=== PATIENT | male | born 1985 | race Caucasian/White ===

== ENCOUNTER 2018-03-20 12:39 | Emergency (ER) | payer OTHER ==
[2018-03-20 12:49] VITALS: BP 140/80; PULSE 82; RESP 20; TEMP 98.2; O2SAT 100
[2018-03-20 13:00] VITALS: O2SAT 99
[2018-03-20] MEDS ORDERED: SODIUM CHLORIDE 0.9% FLUSH 10 ML FLUSH IVF PRN (13:15)
[2018-03-20] MEDS ORDERED: ASPIRIN 81 MG CHEW TAB PO ONE (13:15)
[2018-03-20 13:22] LABS: AUTOMATED NEUTROPHIL # 5.9 TH/MM3 (1.8-7.7); BASOPHIL % 0.5 % (0.0-2.0); EOSINOPHIL % 0.4 % (0.0-4.0); HEMATOCRIT 48.6 % (39.0-51.0); LYMPH % 18.1 % (9.0-44.0); LYMPHOCYTE # 1.4 TH/MM3 (1.0-4.8); MEAN CELL VOLUME 89.9 FL (80.0-100.0); MEAN CORPUSCULAR HEMOGLOBIN 29.5 PG (27.0-34.0); MEAN CORPUSCULAR HGB CONC 32.9 % (32.0-36.0); MEAN PLATELET VOLUME 7.7 FL (7.0-11.0); MONO % 5.4 % (0.0-8.0); MONOCYTE # 0.4 TH/MM3 (0-0.9); NEUT % 75.6 % (16.0-70.0); PLATELET COUNT 237 TH/MM3 (150-450); RED CELL DISTRIBUTION WIDTH 12.4 % (11.6-17.2); WHITE BLOOD COUNT 7.8 TH/MM3 (4.0-11.0)
--- NOTE | 2018-03-20 13:31 | RADRPT ---
EXAM DATE/TIME: 03/20/2018 13:16 [facility] COMPARISON: No previous studies available for comparison. INDICATIONS : Chest pain for 30 minutes. Patient stated [place] past [place] days. MEDICAL HISTORY : None. SURGICAL HISTORY : None. ENCOUNTER: Initial ACUITY: 1 day PAIN SCORE: 5/10 LOCATION: Bilateral chest FINDINGS: PA and lateral views of the chest demonstrate the lungs to be symmetrically aerated without evidence of mass, infiltrate or effusion. The cardiomediastinal contours are unremarkable. Osseous structure s are intact. CONCLUSION: Normal examination. Jamel Woo MD on March 20, 2018 at 13:29 Board Certified Radiologist. This report was verified electronically.
[2018-03-20 13:32] LABS: CHLORIDE 102 MEQ/L (98-107); SODIUM (NA) 136 MEQ/L (136-145)
[2018-03-20 13:35] LABS: BICARBONATE 25.7 MEQ/L (21.0-32.0); BLOOD UREA NITROGEN 12 MG/DL (7-18); CALCIUM 9.5 MG/DL (8.5-10.1); GLUCOSE,RANDOM 134 MG/DL (74-106); MAGNESIUM 2.2 MG/DL (1.5-2.5)
[2018-03-20 13:39] LABS: GLOMERULAR FILTRATION RATE 69 ML/MIN (>89)
[2018-03-20 13:43] LABS: TROPONIN I LESS THAN 0.02 NG/ML (0.02-0.05)
--- NOTE | 2018-03-20 13:43 | PD ---
HPI . Epigastric pain Chief Complaint: Chest Pain Time Seen by Provider: 13:11 Travel History International Travel<30 days: No Contact w/Intl Traveler<30days: [place] Traveled to: [place] Traveled to known affect area: No History of Present Illness HPI Patient presents with a chief complaint of severe epigastric pain. Onset was 45 minutes prior to presentation. The pain has waxed and waned since that time. He states that he just got off of a cruciate this morning. He is indulged in some exotic meals and also drinks some alcohol while on the ship. He states that he felt feverish and poorly for a couple days towards the end of cruise. Then the pain started acutely after he got home. Prior to presenting to us, he had taken Prilosec 40 mg, Zantac 300 mg, antacids, crackers and water. He states that the antacids in the water relieved his pain for just a couple seconds. The pain quickly recurred. He denies any previous similar history. He reports no medical problems whatsoever. He states that he has not been able to determine any exacerbating factors. The symptoms have been only momentarily relieved by water and antacids. PFSH Past Medical History Medical other: Yes (hernia, broken bones) Tetanus Vaccination: Unknown Influenza Vaccination: Yes Social History Alcohol Use: Yes (occ) Tobacco Use: No Substance Use: No Allergies-Medications (Allergen,Severity, Reaction): Coded Allergies: No Known Allergies (Unverified , 03/20/18) Reported Meds & Prescriptions Reported Meds & Active Scripts Active No Active Prescriptions or Reported Medications Review of Systems Except as stated in HPI: all other systems reviewed are Neg Physical Exam Narrative GENERAL: Awake and alert. He looks uncomfortable. SKIN: Warm and dry. HEAD: Normocephalic/atraumatic. EYES: Pupils are equal. Extraocular movements are intact. NECK: Normal range of motion. CARDIOVASCULAR: Regular rate and rhythm. RESPIRATORY: Nonlabored respirations. ABDOMEN: Soft and nontender to palpation. MUSCULOSKELETAL: Atraumatic. NEUROLOGICAL: Nonfocal. PSYCHIATRIC: Appropriate mood and affect. Data Data Last Documented VS Vital Signs Date Time Temp Pulse Resp B/P (MAP) Pulse Ox O2 Delivery O2 Flow Rate FiO2 03/20/18 14:47 82 16 115/61 (79) 99 Room Air 03/20/18 12:49 98.2 Orders Orders Basic Metabolic Panel (Bmp) (03/20/18 13:11) Complete Blood Count With Diff (03/20/18 13:11) Magnesium (Mg) (03/20/18 13:11) Troponin I (03/20/18 13:11) Ecg Monitoring (03/20/18 13:11) Iv Access Insert/Monitor (03/20/18 13:11) Oximetry (03/20/18 13:11) Aspirin Chew (Aspirin Chew) (03/20/18 13:15) Sodium Chloride 0.9% Flush (Ns Flush) (03/20/18 13:15) Chest, Pa & Lat (03/20/18 13:11) Lipase (03/20/18 13:34) Pantoprazole Inj (Protonix Inj) (03/20/18 13:45) Dicyclomine Inj (Bentyl Inj) (03/20/18 13:45) Ct Abd/Pel W Iv Contrast(Rout) (03/20/18 13:35) Sucralfate Liq (Carafate Liq) (03/20/18 14:15) Iohexol 350 Inj (Omnipaque 350 Inj) (03/20/18 14:00) Ed Discharge Order (03/20/18 14:54) Labs Laboratory Tests Test 03/20/18 13:05 White Blood Count 7.8 TH/MM3 Red Blood Count 5.40 MIL/MM3 Hemoglobin 16.0 GM/DL Hematocrit 48.6 % Mean Corpuscular Volume 89.9 FL Mean Corpuscular Hemoglobin 29.5 PG Mean Corpuscular Hemoglobin Concent 32.9 % Red Cell Distribution Width 12.4 % Platelet Count 237 TH/MM3 Mean Platelet Volume 7.7 FL Neutrophils (%) (Auto) 75.6 % Lymphocytes (%) (Auto) 18.1 % Monocytes (%) (Auto) 5.4 % Eosinophils (%) (Auto) 0.4 % Basophils (%) (Auto) 0.5 % Neutrophils # (Auto) 5.9 TH/MM3 Lymphocytes # (Auto) 1.4 TH/MM3 Monocytes # (Auto) 0.4 TH/MM3 Eosinophils # (Auto) 0.0 TH/MM3 Basophils # (Auto) 0.0 TH/MM3 CBC Comment DIFF FINAL Differential Comment Blood Urea Nitrogen 12 MG/DL Creatinine 1.20 MG/DL Random Glucose 134 MG/DL Calcium Level 9.5 MG/DL Magnesium Level 2.2 MG/DL Sodium Level 136 MEQ/L Potassium Level 3.3 MEQ/L Chloride Level 102 MEQ/L Carbon Dioxide Level 25.7 MEQ/L Anion Gap 8 MEQ/L Estimat Glomerular Filtration Rate 69 ML/MIN Troponin I LESS THAN 0.02 NG/ML Lipase 242 U/L MDM Medical Decision Making Medical Screen Exam Complete: Yes Emergency Medical Condition: Yes Interpretation(s) EKG shows a sinus rhythm. No acute ischemic changes. Differential Diagnosis Differential diagnosis of abdominal pain includes but is not limited to gastritis, pancreatitis, hepatitis, gastroenteritis, constipation, urinary retention, peptic ulcer disease, diverticulitis or appendicitis Narrative Course This patient presents with the acute onset of epigastric pain. This started just prior to arrival. It has been basically unresponsive to a PPI, H2 abigail , antacid and food/water. CBC & BMP Diagram 03/20/18 13:05 Calcium Level 9.5, Magnesium Level 2.2, lipase 242 Troponin less than 0.02 The patient is feeling much better. The only medication that he really received here was Bentyl except for the aspirin. Apparently, all the medications that he had taken prior to arrival kicked in. Either that or what ever it was ran its course. Nonetheless, he is much improved. Diagnosis Primary Impression: Epigastric pain Patient Instructions: Epigastric Pain (ED), General Instructions Med/Other Pt SpecificInfo: Prescription(s) given Scripts Dicyclomine (Bentyl) 10 Mg Cap 20 MG PO QID for Bowel Management, #20 CAP 0 Refills Prov: Ruth Shetty MD 03/20/18 Sucralfate (Carafate) 1 Gram Tab 1 GM PO QID for Ulcer Prevention, #120 TAB 0 Refills On empty stomach Prov: Ruth Shetty MD 03/20/18 Disposition: 01 DISCHARGE HOME Condition: Stable Ruth Shetty MD Mar 20, 2018 13:43
[2018-03-20] MEDS ORDERED: PANTOPRAZOLE SODIUM 40 MG VIAL IV PUSH ONE (13:45)
[2018-03-20] MEDS ORDERED: DICYCLOMINE HCL 20 MG/2 ML VIAL IM ONE (13:45)
[2018-03-20 14:00] VITALS: BP 119/68; PULSE 88; RESP 18; O2SAT 99
[2018-03-20] MEDS ORDERED: IOHEXOL 350 MG/ML 10 ML VIAL (for RAD DIAG) IVCONTRAST ONE (14:00)
[2018-03-20] MEDS ORDERED: SUCRALFATE 1 GM/10 ML CUP PO ONE (14:15)
--- NOTE | 2018-03-20 14:23 | RADRPT ---
EXAM DATE/TIME: 03/20/2018 13:44 [facility] COMPARISON: No previous studies available for comparison. INDICATIONS : Abdominal pain mid upper abdomen, sudden onset. IV CONTRAST: 75 cc Omnipaque 350 (iohexol) IV ORAL CONTRAST: No oral contrast ingested. RADIATION DOSE: 5.98 CTDIvol (mGy) MEDICAL HISTORY : None SURGICAL HISTORY : Hernia ENCOUNTER: Initial ACUITY: 1 day PAIN SCALE: 10/10 LOCATION: Bilateral upper quadrant TECHNIQUE: Volumetric scanning of the abdomen and pelvis was performed. Using automated exposure control and ad justment of the mA and/or kV according to patient size, radiation dose was kept as low as reasonably achievable to obtain optimal diagnostic quality images. DICOM format image data is available electro nically for review and comparison. FINDINGS: LOWER LUNGS: The visualized lower lungs are clear. LIVER: There is a small 0.8 cm hypodensity seen in the right lobe of the liver. There is no dilation of the biliary tree. No calcified gallstones. SPLEEN: Normal size without lesion. PANCREAS: Within normal limits. KIDNEYS: Normal in size and shape. There is no mass, stone or hydronephrosis. ADRENAL GLANDS: Within normal limits. VASCULAR: There is no aortic aneurysm. BOWEL/MESENTERY: The stomach, small bowel, and colon demonstrate no acute abnormality. There is no free intraperitone al air or fluid. There are calcifications within the appendix which could represent appendicoliths ho wever the appendix is not thickened and the surrounding fat appears normal. Air is seen within the brain men of the appendix. ABDOMINAL WALL: Within normal limits. RETROPERITONEUM: There is no lymphadenopathy. BLADDER: No wall thickening or mass. REPRODUCTIVE: Within normal limits. INGUINAL: There is no lymphadenopathy or hernia. MUSCULOSKELETAL: Within normal limits for patient age. CONCLUSION: 1. No acute abnormality seen. 2. There do appear to be calcifications within the appendix likely related to appendicoliths. Signifi cant surrounding inflammatory change is not seen. 3. Small 0.8 cm hypodensity seen in the right lobe of the liver. This is nonspecific. Given this was incidentally found in this 32-year-old patient, it likely represents a benign cyst or hemangioma. Ru Bangura MD on March 20, 2018 at 14:16 Board Certified Radiologist. This report was verified electronically.
[2018-03-20 14:47] VITALS: BP 115/61; PULSE 82; RESP 16; O2SAT 99
[2018-03-20] MEDS ORDERED: CARA1TAB6 PO (14:56)
[2018-03-20] MEDS ORDERED: DICY10 PO (14:56)
--- NOTE | 2018-03-21 00:24 | EKG ---
Date Performed: 03/20/2018 Time Performed: 12:42:10 PTAGE: 32 years EKG: Sinus rhythm NORMAL ECG INTERPRETATION BASED ON A DEFAULT AGE OF 38 YEARS NO PREVIOUS TRACING DOCTOR: Bud Metz Interpretating Date/Time 03/21/2018 00:22:37
== END 2018-03-20 15:09 | disposition home or self-care (01) ==
LOC: PHED 12:39
DX: R10.13 Epigastric pain (principal)
CPT/HCPCS: 71046; 74177; 80048; 83690; 83735; 84484; 85025; 93005; 96372; 99285; J0500; Q9967